=== PATIENT | male | born 1945 | race Caucasian/White ===

== ENCOUNTER → 2023-10-05 09:28 | Outpatient (REF) | payer OTHER, SELFPAY | LOC: HWRAD 09:28 | PROVIDERS: ATTENDING PHYSICIAN Internal Medicine Hematology & Oncology; FAMILY PHYSICIAN Family Medicine | DX: C49.A3 Gastrointestinal stromal tumor of small intestine (principal); Z85.46 Personal history of malignant neoplasm of prostate; Z85.820 Personal history of malignant melanoma of skin | CPT/HCPCS: 74177; Q9967 ==